=== PATIENT | female | born 1990 ===

== ENCOUNTER 2019-04-16 05:52 | Inpatient (IN) | payer BC ==
[~2019-04-16] VITALS: Ht 162.6 cm; Wt 77.1 kg
[2019-04-16] MEDS ORDERED: NALBUPHINE 10 MG/ML AMP IVP PRN (06:15)
[2019-04-16] MEDS ORDERED: AMPICILLIN 2,000 MG VIAL ONE (07:26)
[2019-04-16 07:54] LABS: BARBITURATE, URINE NEG. ng/ml (NEG <=200); BENZODIAZEPINE, URINE NEG. ng/mL (NEG <=200); CANNABINOID, URINE NEG. ng/mL (NEG <=50); COCAINE, URINE NEG. ng/mL (NEG <=300); OPIATE, URINE NEG. ng/mL (NEG <=2000); PHENCYCLIDINE SCREEN,URINE NEG. ng/mL (NEG <=25)
[2019-04-16 07:55] LABS: APPEARANCE,URINE CLEAR (CLEAR); BILIRUBIN,URINE NEGATIVE (NEGATIVE); BLOOD, URINE 2+ (NEGATIVE); COLOR,URINE YELLOW (YELLOW); LEUKOCYTE ESTERASE ,URINE NEGATIVE (NEGATIVE); NITRITE, URINE NEGATIVE (NEGATIVE); UGLUCOSE NEGATIVE (NEGATIVE)
[2019-04-16] MEDS ORDERED: OXYTOCIN 20 UNITS/LR PREMIX 1,000 ML IV ONE (07:59)
[2019-04-16] MEDS ORDERED: OXYTOCIN 20 UNITS in LACTATED RINGERS 1,000 ML IV SCH (08:00)
[2019-04-16] MEDS ORDERED: AMPICILLIN 2,000 MG in NACL 0.9% MINI-BAG PLUS 100 ML IV SCH (08:00)
[2019-04-16 08:03] LABS: WBC,URINE 0-5 /HPF (0-5)
[2019-04-16 08:04] LABS: ANION GAP 13.7 (8-16); CARBON DIOXIDE 23.2 mmol/L (21-32); CREATININE 0.5 mg/dL (0.6-1.3); POTASSIUM 3.9 mmol/L (3.5-5.1)
[2019-04-16 08:06] LABS: TOTAL BILIRUBIN 0.3 mg/dL (0.0-1.0)
[2019-04-16 08:07] LABS: BASOPHILS % (AUTO) 0.2 % (0.0-2.0); EOSINOPHILS # (AUTO) 0.1 K/uL (0-0.4); EOSINOPHILS % (AUTO) 0.6 % (0.0-4.0); HEMATOCRIT 40.5 % (36-48); HEMOGLOBIN 13.9 g/dL (12.0-16.0); LYMPHOCYTES # (AUTO) 2.1 K/uL (2.5-16.5); LYMPHOCYTES % (AUTO) 16.9 % (20.5-51.1); MEAN CORPUSCULAR HEMOGLOBIN 31 pg (27-31); MEAN CORPUSCULAR HGB CONC 34 g/dL (33-37); MEAN CORPUSCULAR VOLUME 89.9 fL (80-94); MONOCYTES # (AUTO) 0.7 K/uL (0.8-1.0); MONOCYTES % (AUTO) 5.7 % (1.7-9.3); NEUTROPHILS # (AUTO) 9.7 K/uL (1.8-7.7); NEUTROPHILS % (AUTO) 76.6 % (42.2-75.2); PLATELET COUNT (AUTO) 231 K/uL (140-450); RED BLOOD CELL COUNT(AUTO) 4.51 MIL/uL (4.20-5.40); RED CELL DISTRIBUTION WIDTH 13.6 % (11.6-13.7); WHITE BLOOD COUNT (AUTO) 12.7 K/uL (4.8-10.8)
[2019-04-16] MEDS ORDERED: FERR325E14 PO (08:12)
[2019-04-16] MEDS ORDERED: PREN-380 PO (08:12)
[2019-04-16 08:22] VITALS: BP 112/82
[2019-04-16] MEDS ORDERED: INFLUENZA VACCINE QUAD 0.5 ML SYR IMVAC PRN (08:25)
[2019-04-16] MEDS ORDERED: ROPIVACAINE 0.2%/NS PREMIX 0 ML EPI ONE (08:46)
[2019-04-16] MEDS ORDERED: ROPIVACAINE 0.2%/NS PREMIX 100 ML EPI SCH ×2 (09:30)
[2019-04-16] MEDS: LACTATED RINGERS 1,000 ML IV SCH ×2 (10:06→16:00)
[2019-04-16] MEDS ORDERED: AMPICILLIN 1,000 MG VIAL ONE ×2 (11:54→15:54)
[2019-04-16] MEDS ORDERED: AMPICILLIN 1,000 MG in NACL 0.9% MINI-BAG PLUS 50 ML IV SCH (12:00)
--- NOTE | 2019-04-16 15:53 | NUR ---
PATIENT HAS BEEN SCREENED AND CATEGORIZED LOW NUTRITION RISK. PATIENT WILL BE SEEN WITHIN 5-7 DAY OF ADMISSION. 04/20/2019-04/22/[address]
[2019-04-16] MEDS ORDERED: BUPIVACAINE 0.125%/NS PREMIX 250 ML ONE (17:18)
[2019-04-16] MEDS ORDERED: BUPIVACAINE 0.125%/NS PREMIX 250 ML EPI SCH (17:35)
[2019-04-16] MEDS ORDERED: MORPHINE SULFATE 10 MG/ML VIAL ONE (19:14)
[2019-04-16] MEDS ORDERED: IBUPROFEN 800 MG TAB PO PRN (19:30)
[2019-04-16] MEDS ORDERED: MORPHINE SULFATE 5 MG/ML VIAL IVP ONE (19:30)
[2019-04-16] MEDS ORDERED: HYDROcodone/APAP 5/325 MG 1 TAB TAB PO PRN (19:35)
[2019-04-16] MEDS ORDERED: BENZOCAINE/MENTHOL 20%-0.5% 60 GM CAN TP PRN (19:35)
[2019-04-16] MEDS ORDERED: OXYTOCIN 10 UNITS/ML VIAL IM PRN (19:35)
[2019-04-16] MEDS ORDERED: METHYLERGONOVINE 0.2 MG/ML AMP IM PRN (19:35)
[2019-04-16] MEDS ORDERED: TEMAZEPAM 15 MG CAP PO PRN (19:35)
[2019-04-16 20:43] VITALS: BP 132/57
[2019-04-16] MEDS ORDERED: ceFAZolin 1,000 MG VIAL ONE (20:52)
[2019-04-16] MEDS ORDERED: DOCUSATE SOD/SENNA 50/8.6 MG 1 TAB PO SCH (21:00)
[2019-04-17] MEDS ORDERED: ceFAZolin 1,000 MG VIAL ONE (05:04)
[2019-04-17 05:47] LABS: HEMATOCRIT 33.2 % (36-48); HEMOGLOBIN 11.5 g/dL (12.0-16.0)
[2019-04-17] MEDS: oxyCODONE/APAP 5/325 MG 1 TAB TAB PO PRN ×2 (06:13→14:46)
[2019-04-17] MEDS: BISACODYL 5 MG TABEC PO SCH ×2 (21:12→21:14)
[2019-04-18] MEDS ORDERED: FERR325E14 PO (09:55)
[2019-04-18] MEDS ORDERED: IBUP-2213 PO (09:56)
== END 2019-04-18 14:55 | disposition home or self-care (01) | DRG 807 ==
LOC: MFCC 05:52
PROVIDERS: ADMIT Obstetrics & Gynecology; ATTEND Obstetrics & Gynecology
PROC: 10D07Z6 Extraction of Products of Conception, Vacuum, Via Natural or Artificial Opening (ICD-10-PCS; principal; 2019-04-16)
PROC: 0W8NXZZ Division of Female Perineum, External Approach (ICD-10-PCS; 2019-04-16)
PROC: 00HU33Z Insertion of Infusion Device into Spinal Canal, Percutaneous Approach (ICD-10-PCS; 2019-04-16)
PROC: 3E0R3BZ Introduction of Anesthetic Agent into Spinal Canal, Percutaneous Approach (ICD-10-PCS; 2019-04-16)
PROC: 3E0234Z Introduction of Serum, Toxoid and Vaccine into Muscle, Percutaneous Approach (ICD-10-PCS; 2019-04-17)
DX: O42.92 Full-term premature rupture of membranes, unspecified as to length of time between rupture and onset of labor (principal); Z37.0 Single live birth; O99.824 Streptococcus B carrier state complicating childbirth; Z3A.38 38 weeks gestation of pregnancy; O76 Abnormality in fetal heart rate and rhythm complicating labor and delivery; Z23 Encounter for immunization
CPT/HCPCS: 36415; 51702; 80053; 80305; 81001; 85018; 85025; 86592; 86762; 86886; 86900; 86901; 87340; 90715; J0290; J0690; J2270; J2590; J2795; J3490; J7060; J7120